=== PATIENT | female | born 1965 | race Caucasian/White ===

== ENCOUNTER → 2016-10-05 | Outpatient (CLI) | payer BC ==
[2016-10-05 10:11] LABS: MANUAL MICROSCOPIC REQUIRED? YES; URINE APPEARANCE SL CLOUDY (CLEAR); URINE BILIRUBIN NEG (NEG); URINE COLOR YELLOW; URINE NITRITE NEG (NEG); UROBILINOGEN NEG (NEG)
[2016-10-05 10:19] LABS: REVIEW REQ? NO
[2016-10-05 10:22] LABS: URINE BACTERIA 2+ (NEG); URINE RBC 0-4 /hpf (0-4); URINE WBC >30 /hpf (0-5)
== END | disposition home or self-care (01) ==
LOC: C.LAB1850 09:07
PROVIDERS: ATTEND Obstetrics & Gynecology
DX: R39.9 Unspecified symptoms and signs involving the genitourinary system (principal)

== ENCOUNTER → 2017-05-12 | Outpatient (CLI) | payer BC ==
--- NOTE | 2017-05-12 15:37 | MAMMOGRAPHY REPORT ---
BILATERAL DIGITAL SCREENING MAMMOGRAM TOMOSYNTHESIS WITH CAD: 05/12/2017 CLINICAL HISTORY: Routine screening. Patient has no complaints. TECHNIQUE: Breast tomosynthesis in addition to standard 2D mammography was performed. Current study was also evaluated with a Computer Aided Detection (CAD) system. COMPARISON: Comparison is made to exams dated: 03/31/2016 mammogram, 02/25/2015 mammogram, 02/13/2014 m ammogram, 02/08/2013 mammogram, 02/05/2013 mammogram, and 01/27/2012 mammogram - [facility]. BREAST COMPOSITION: The tissue of both breasts is heterogeneously dense, which may obscure small mas ses. FINDINGS: No suspicious masses, calcifications, or areas of architectural distortion are noted in ei ther breast. There has been no significant interval change compared to prior exams. IMPRESSION: ACR BI-RADS CATEGORY 1: NEGATIVE There is no mammographic evidence of malignancy. A 1 year screening mammogram is recommended. The pa tient will receive written notification of the results. Approximately 10% of breast cancers are not detected with mammography. A negative mammographic report should not delay biopsy if a clinically suggestive mass is present. Terese Chaparro M.D. ah/:05/12/2017 15:10:23 Economic Specialist: Poly KEARNS(R)(M), [facility] letter sent: Normal 1/2 BI-RADS Code: ACR BI-RADS Category 1: Negative
== END | disposition home or self-care (01) ==
LOC: C.MAMM 09:11
PROVIDERS: ATTEND Nurse Practitioner Family
DX: Z12.31 Encounter for screening mammogram for malignant neoplasm of breast (principal)